=== PATIENT | male | born 1935 | race Caucasian/White ===

== ENCOUNTER 2018-07-19 09:40 | Outpatient (BNVA) | payer MEDICARE, OTHER, SELFPAY | END 2018-07-19 09:41 | PROVIDERS: Visit Provider Urology | DX: R39.198 Other difficulties with micturition (principal); C61 Malignant neoplasm of prostate; Z87.448 Personal history of other diseases of urinary system; M96.1 Postlaminectomy syndrome, not elsewhere classified | CPT/HCPCS: 52000; 99212 ==

== ENCOUNTER 2018-08-15 11:07 | Outpatient (CLI) | payer MEDICARE, OTHER, SELFPAY | END 2018-08-15 11:27 | PROVIDERS: PCP Internal Medicine; Visit Provider Urology | DX: N39.42 Incontinence without sensory awareness (principal); R39.12 Poor urinary stream; Z90.79 Acquired absence of other genital organ(s); Z85.46 Personal history of malignant neoplasm of prostate | CPT/HCPCS: 51701; 51728; 51784; 51797; 99212 ==

== ENCOUNTER 2018-09-02 13:22 | Outpatient (CLI) | payer MEDICARE, OTHER, SELFPAY ==
--- NOTE | 2018-10-16 12:38 | ZIOP_ITS ---
ZIO PATCH DATE OF DICTATION October 16, 2018 STUDY INDICATION Palpitations. REQUESTING PROVIDER Moses Rodriguez M.D. FINDINGS The patient was monitored for 14 days. COMMENTS The predominant underlying rhythm was sinus rhythm. The average heart rate in sinus rhythm 79 beats per minute, range 50 to 127 beats per minute. There was rare ectopy. There were 68 atrial runs, average heart rate 111 beats per minute, range 71 to 169 beats per minute. The longest episode lasted 19.8 seconds with an average heart rate of 114 beats per minute. There were no pauses greater than 3 seconds. There was no higher degree heart block. There were 3 patient events, 1 event correlated with SVT, all other events did not correlate with arr hythmias. FINAL INTERPRETATION Bursts of atrial tachycardia at times symptomatic. Roberto Balderrama M.D. MANAV/mary T - 10/16/2018
== END 2018-09-02 13:42 ==
PROVIDERS: PCP Internal Medicine; Visit Provider Internal Medicine
DX: R00.2 Palpitations (principal); I47.1 Supraventricular tachycardia
CPT/HCPCS: 93225

== ENCOUNTER 2018-10-16 08:33 | Outpatient (CLI) | payer MEDICARE, OTHER, SELFPAY | END 2018-10-16 08:53 | PROVIDERS: PCP Internal Medicine; Referring Provider Internal Medicine; Visit Provider Student in an Organized Health Care Education/Training Program | DX: R00.2 Palpitations (principal); I47.1 Supraventricular tachycardia | CPT/HCPCS: 0298T ==

== ENCOUNTER 2019-05-12 16:12 | Outpatient (REF) | payer MEDICARE, OTHER, SELFPAY ==
[2019-05-12 21:16] LABS: Anion Gap 11.9 mmol/L (3-11); BUN 17 mg/dL (7-18); CO2 27.1 mmol/L (21.0-32.0); CREATININE 1.02 mg/dL (0.70-1.30); Calcium 9.5 mg/dL (8.5-10.1); Chloride 104 mmol/L (98-107); Glucose 152 mg/dL (70-100); Potassium 3.4 mmol/L (3.5-5.1); Sodium 143 mmol/L (136-145)
== END 2019-05-12 16:32 ==
LOC: NCHCN 16:12
PROVIDERS: PCP Internal Medicine; Visit Provider Internal Medicine
DX: I10 Essential (primary) hypertension (principal)
CPT/HCPCS: 80048

== ENCOUNTER 2019-08-11 12:49 | Outpatient (REF) | payer MEDICARE, OTHER, SELFPAY | END 2019-08-11 13:09 | LOC: NCHCN 12:49 | PROVIDERS: PCP Internal Medicine; Visit Provider Internal Medicine | DX: E87.6 Hypokalemia (principal) | CPT/HCPCS: 84132 ==

== ENCOUNTER 2020-06-17 16:10 | Outpatient (REF) | payer MEDICARE, OTHER, SELFPAY ==
[2020-06-17 21:24] LABS: Anion Gap 10.1 mmol/L (3-11); BUN 16 mg/dL (7-18); CO2 28.9 mmol/L (21.0-32.0); CREATININE 1.06 mg/dL (0.70-1.30); Calcium 9.4 mg/dL (8.5-10.1); Chloride 103 mmol/L (98-107); Glucose 127 mg/dL (74-106); Potassium 3.3 mmol/L (3.5-5.1); Sodium 142 mmol/L (136-145)
== END 2020-06-17 16:30 ==
LOC: NCHCN 16:10
PROVIDERS: PCP Internal Medicine; Visit Provider Internal Medicine
DX: I10 Essential (primary) hypertension (principal)
CPT/HCPCS: 80048

== ENCOUNTER 2020-09-14 13:06 | Outpatient (REF) | payer MEDICARE, OTHER, SELFPAY ==
[2020-09-14 20:52] LABS: Potassium 3.9 mmol/L (3.5-5.1)
== END 2020-09-14 13:26 ==
LOC: NCHCN 13:06
PROVIDERS: PCP Internal Medicine; Visit Provider Internal Medicine
DX: E87.6 Hypokalemia (principal)
CPT/HCPCS: 84132